=== PATIENT | female | born 1960 | race Caucasian/White ===

== ENCOUNTER 2016-10-01 10:11 | Emergency (ER) | payer BC ==
[~2016-10-01] VITALS: Ht 162.6 cm; Wt 95.2 kg
[2016-10-01 12:36] VITALS: BP 139/90
== END 2016-10-01 12:36 | disposition home or self-care (01) ==
LOC: ED 10:11
DX: S32.019A Unspecified fracture of first lumbar vertebra, initial encounter for closed fracture (principal); R03.0 Elevated blood-pressure reading, without diagnosis of hypertension; E78.00 Pure hypercholesterolemia, unspecified; E07.9 Disorder of thyroid, unspecified; Z88.0 Allergy status to penicillin; W17.89XA Other fall from one level to another, initial encounter; Y93.89 Activity, other specified; Y99.8 Other external cause status; Y92.89 Other specified places as the place of occurrence of the external cause
CPT/HCPCS: J1885; J3010

== ENCOUNTER 2017-04-29 07:49 | Emergency (ER) | payer BC ==
[2017-04-29 09:21] VITALS: BP 148/68
== END 2017-04-29 09:21 | disposition home or self-care (01) ==
LOC: ED 07:49
DX: J45.901 Unspecified asthma with (acute) exacerbation (principal); K21.9 Gastro-esophageal reflux disease without esophagitis; Z88.0 Allergy status to penicillin
CPT/HCPCS: J1100; J7613; J7644